=== PATIENT | female | born 1965 ===

== ENCOUNTER 2017-12-17 12:17 | Emergency (ER) | payer MEDICARE, BC ==
--- NOTE | 2017-12-17 14:50 | ED ---
Upper Extremity Pain - HPI Summary HPI Summary: 52-year-old female presents with left shoulder pain for the past week. States she has chronic pain in her left forearm. She states in the past couple days been having pain in her posterior left shoulder. She states that then moved her anterior shoulder and into her upper chest wall. She states is felt muscular in the chest wall. States that she developed numbness and tingling into her pinky and ring finger. She states that the pain is a throbbing pain. She's tried Tylenol ibuprofen and has not helped the pain. She denies any chest pressure or shortness of breath. No change in vision or hearing. No headache. She states that she has been having some weakness into her left arm. She denies any pain or weakness on the right. She states she has pain with flexion of her neck. No injury. She has a past medical history of endocrine cancer. states ice makes it better. no cardiac history. is right handed. - History of Current Complaint Chief Complaint: EDExtremityUpper Stated Complaint: LT ARM PAIN/NUMBNESS Time Seen by Provider: 12/17/17 14:32 - Allergies/Home Medications Allergies/Adverse Reactions: Allergies Allergy/AdvReac Type Severity Reaction Status Date / Time MS Iodinated Contrast Media Allergy Intermediate Hives Verified 05/27/12 15:07 [IV CONTRAST DYE] MS Ondansetron [Ondansetron] Allergy Intermediate Unknown Verified 10/23/14 18: 25 Reaction Details MS Sulfa Drugs [Sulfa Drugs] Allergy Intermediate Rash Verified 05/27/12 15:07 PMH/Surg Hx/FS Hx/Imm Hx Endocrine/Hematology History: Reports: Hx Thyroid Disease GI History: Reports: Other GI Disorders - colostomy - Cancer History Cancer Type, 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 [place]. Appendectomy. transverse colostomy Infectious Disease History: No Infectious Disease History: Denies: Hx Clostridium Difficile, Hx Hepatitis, Hx Human Immunodeficiency Virus (HIV), Hx of Known/Suspected MRSA, Hx Shingles, Hx Tuberculosis, Hx Known/ Suspected VRE, Hx Known/Suspected VRSA, History Other Infectious Disease, Traveled Outside the [place] in Last 30 Days - Family History Known Family History: Positive: Hypertension - Social History Alcohol Use: Rare Substance Use Type: Reports: None Smoking Status (MU): Never Smoked Tobacco Have You Smoked in the Last Year: No Review of Systems Negative: Fever Negative: Chest Pain Negative: Shortness Of Breath Positive: Myalgia - left shoulder pain All Other Systems Reviewed And Are Negative: Yes Physical Exam Triage Information Reviewed: Yes Vital Signs On Initial Exam: Initial Vitals Temp Pulse Resp BP Pulse Ox 98.6 F 88 16 110/69 100 12/17/17 12:50 12/17/17 12:50 12/17/17 12:50 12/17/17 12:50 12/17/17 12:50 Vital Signs Reviewed: Yes Appearance: Positive: Well-Appearing Skin: Positive: Warm, Dry Head/Face: Positive: Normal Head/Face Inspection Eyes: Positive: Normal, Conjunctiva Clear ENT: Positive: Pharynx normal Neck: Positive: Other: - pain with flexion of neck, full ROM neck Respiratory/Lung Sounds: Positive: Clear to Auscultation, Breath Sounds Present Cardiovascular: Positive: Normal, RRR Musculoskeletal: Positive: Limited @ - above 90 degree flexion and extension, Other - decreased oncology registrar strength, good pulses, capillary refill<2 secs, sensation grossly intact Neurological: Positive: Normal, Reflexes Intact - biceps Psychiatric: Positive: Normal Diagnostics - Vital Signs Vital Signs Temp Pulse Resp BP Pulse Ox 12/17/17 13:55 98.2 F 20 20 120/80 100 12/17/17 12:50 98.6 F 88 16 110/69 100 - Laboratory Result Diagrams: 12/17/17 14:55 12/17/17 14:55 Lab Statement: Any lab studies that have been ordered have been reviewed, and results considered in the medical decision making process. - Radiology shoulder Xray Interpretation: No Acute Changes Radiology Interpretation Completed By: Radiologist - CT neck CT Interpretation: Positive (See Comments) - IMPRESSION: Degenerative disc disease at C5-C6 and C6-C7. Mild ventral osteophyte formation is noted. No fracture is noted. CT Interpretation Completed By: Radiologist - EKG No standard instances Cardiac Rate: NL EKG Rhythm: Sinus Rhythm EKG Interpretation: sinus rhythm, early repolization Course/Dx - Course Course Of Treatment: 52-year-old female presents with left shoulder pain for the past week. States she has chronic pain in her left forearm. She states in the past couple days been having pain in her posterior left shoulder. She states that then moved her anterior shoulder and into her upper chest wall. She states is felt muscular in the chest wall. States that she developed numbness and tingling into her pinky and ring finger. She states that the pain is a throbbing pain. She's tried Tylenol ibuprofen and has not helped the pain. She denies any chest pressure or shortness of breath. No change in vision or hearing. No headache. She states that she has been having some weakness into her left arm. She denies any pain or weakness on the right. She states she has pain with flexion of her neck. No injury. She has a past medical history of endocrine cancer. states ice makes it better. no cardiac history. is right handed. On exam has pain with flexion of the neck. Nontender over the shoulder. Decreased strength compared left to the right. Neurovascularly intact. Labs within normal limits. Troponin negative. EKG sinus rhythm. cervical CT degenerative disc C5 through C7. xray shoulder normal. discussed likely nerve impingement. will try muscle relaxer. discussed kidney function is elevated although has been elevated with patient labs have with here. patient fill follow up with oncology about such. patient understand and agrees with plan. - Diagnoses Differential Diagnosis/HQI/PQRI: Positive: Arthritis, Fracture (Closed), Strain Provider Diagnoses: Left shoulder pain, Abnormal kidney function Discharge - Sign-Out/Discharge Documenting (check all that apply): Patient Departure - Discharge Plan Condition: Good Disposition: HOME Prescriptions: Cyclobenzaprine TAB* [Flexeril 10 MG TAB*] 10 mg PO TID PRN #21 tab PRN Reason: Pain Patient Education Materials: Cervical Radiculopathy (ED) Referrals: No Primary Care Phys,NOPCP [Primary Care Provider] - Additional Instructions: Follow up with primary within 5 days Follow up with oncology about renal function Take muscle relaxers three times a day Use ibuprofen or Tylenol for pain every 6 hours ice area, move as much as possible Return to ED if develop any new or worsening symptoms - Billing Disposition and Condition Condition: GOOD Disposition: Home
[2017-12-17 15:04] LABS: ABS Basophils 0 10^3/ul (0-0.2); ABS Eosinophils 0.1 10^3/ul (0-0.6); ABS Lymphocytes 0.4 10^3/ul (1.0-4.8); ABS Monocytes 0.5 10^3/ul (0-0.8); ABS Neutrophils 3.8 10^3/ul (1.5-7.7); ABS Nucleated RBC 0 10^3/ul; Eosinophil % 1.1 % (0-6); Hematocrit 35 % (35-47); Hemoglobin 11.5 g/dl (12.0-16.0); Lymphocyte % 9.2 % (25-47); Mean Corpuscular HGB Conc 33 g/dl (31-36); Mean Corpuscular Hemoglobin 27 pg (27-31); Mean Corpuscular Volume 81 fL (80-97); Mean Platelet Volume 6.9 um3 (7.4-10.4); Nucleated Red Blood Cells % 0; Platelet Count 183 10^3/ul (150-450); Red Blood Count 4.29 10^6/ul (4.00-5.40); Red Cell Distribution Width 16 % (10.5-15); White Blood Count 4.8 10^3/ul (3.5-10.8)
[2017-12-17 15:21] LABS: EGFR Non-African American 19.5 (>60)
--- NOTE | 2017-12-17 15:25 | RAD ---
Indication: Left shoulder pain, numbness and tingling in the left arm. CT of the cervical spine was obtained in the axial plane. Sagittal and coronal reconstructed images were obtained. The mastoid air cells show no evidence of fluid. No evidence of basilar skull fracture is noted. The vertebral bodies appear normal in height. No compression fracture is noted. Minimal degenerative changes are noted at the atlantoaxial joint. The C1 ring and C2 vertebra show no fracture. At C2-C3, C3-C4 and C4-C5 no disc protrusion is noted. No central or foraminal stenosis is noted. No fractures identified. At C5-C6 disc space narrowing is noted with small central disc protrusion. There is bilateral uncovertebral joint hypertrophy and mild right foraminal stenosis. At C6-C7 degenerative disc disease with dorsal and ventral osteophyte formation is noted. Small right paracentral disc protrusion indents the thecal sac and probably abuts the spinal cord. No foraminal stenosis is noted. At C7-T1 no definite disc protrusion is noted. No central or foraminal stenosis is noted. The lung apices are otherwise unremarkable. IMPRESSION: Degenerative disc disease at C5-C6 and C6-C7. Mild ventral osteophyte formation is noted. No fracture is noted.
--- NOTE | 2017-12-17 16:11 | RAD ---
Indication: Left shoulder pain. 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 There is no fracture or dislocation. No other bone or joint abnormality is identified. IMPRESSION: No fracture of the left shoulder is noted.
[2017-12-17 16:51] VITALS: BP 126/78
== END 2017-12-17 16:50 | disposition home or self-care (01) ==
LOC: ED 12:17
DX: M25.512 Pain in left shoulder (principal); R94.4 Abnormal results of kidney function studies; M50.323 Other cervical disc degeneration at C6-C7 level; Z88.2 Allergy status to sulfonamides; Z88.8 Allergy status to other drugs, medicaments and biological substances; Z91.041 Radiographic dye allergy status
CPT/HCPCS: 36415; 72125; 80053; 84484; 85025; 93005; 99282